=== PATIENT | female | born 1975 | race Caucasian/White ===

== ENCOUNTER 2020-04-28 11:01 | Emergency (ER) | payer OTHER ==
[~2020-04-28] VITALS: Ht 149.9 cm; Wt 63.5 kg
== END 2020-04-28 13:30 | disposition home or self-care (01) ==
LOC: ED 11:01
DX: F07.81 Postconcussional syndrome (principal); Z79.899 Other long term (current) drug therapy; Z88.1 Allergy status to other antibiotic agents; Z88.6 Allergy status to analgesic agent; Z88.5 Allergy status to narcotic agent; Z88.2 Allergy status to sulfonamides
CPT/HCPCS: 96372; 99283; J1885